=== PATIENT | male | born 1995 | race African-American/Black ===

== ENCOUNTER 2020-07-19 23:53 | Emergency (ER) | payer SELFPAY ==
[2020-07-20] MEDS ORDERED: Alum Hydrox/Mag Hydrox/Simeth 15 ML, Lidocaine 2% 5 ML PO ONE ×2 (00:49)
[2020-07-20] MEDS ORDERED: Famotidine 20 MG Tab PO ONE (00:49)
[2020-07-20] MEDS ORDERED: Ondansetron 4 MG Tab.DIS PO ONE (00:49)
[2020-07-20 01:39] LABS: BLOOD UREA NITROGEN,BUN 18 mg/dL (7.0-18.0); CARBON DIOXIDE,CO2 25.5 mmol/L (21.0-32.0); CHLORIDE,CL 105 mmol/L (98-107); GLUCOSE RANDOM 105 mg/dL (74-106); LIPASE 84 U/L (73-393); POTASSIUM,K 4.3 mmol/L (3.5-5.1); SODIUM,NA 140 mmol/L (136-148)
--- NOTE | 2020-07-20 01:45 | EDM.PDOC ---
ED HPI GENERAL MEDICAL PROBLEM - General Chief Complaint: Abdominal Pain Stated Complaint: VOMITING Time Seen by Provider: 07/20/20 00:00 - History of Present Illness INITIAL COMMENTS - FREE TEXT/NARRATIVE: CHIEF COMPLAINT(S): "I am feeling queasy." HISTORY OF PRESENT ILLNESS: This is a 25-year-old man without any reported past medical history who comes to the emergency department with a chief complaint of "I am feeling queasy." The patient states that for approximately one 1 month he has been feeling intermittent queasiness in his stomach. He states that he feels uneasy and woozy. He states that he does feel nauseous but denies any vomiting. He states that he notices h the queasiness sensation after he eats and states that he feels like he is going to throw up. He denies any pain at all whatsoever. He states that he does have some left-sided chest wall pain that started 2 days ago but denies any substernal chest pain, shortness of breath, fever, chills, syncope. He states that he has not yet tried anything for this. He denies any history of cholelithiasis, nephrolithiasis, dysuria, hematuria, penile discharge or testicular pain. He denies any illicit substance use. REVIEW OF SYSTEMS: Constitutional: Denies fever, chills. Eyes: Denies eye pain Ears, Nose, Mouth, & Throat: Denies earache Cardiovascular: Positive for left-sided chest wall pain. Denies chest pain Respiratory: Denies shortness of breath Gastrointestinal: Positive for stomach queasiness and nausea. Denies vomiting, diarrhea, hematochezia, hematemesis, bilious emesis Genitourinary: Denies hematuria, penile discharge, testicular pain or swelling Skin:Denies a rash MSK: Denies joint pain Neurological: Denies blurred vision, numbness, tingling, weakness Psychiatric: Denies depression PAST MEDICAL HISTORY: As per history of present illness and as reviewed below otherwise noncontributory. SURGICAL HISTORY: As per history of present illness and as reviewed below otherwise noncontributory. SOCIAL HISTORY: As per history of present illness and as reviewed below otherwise noncontributory. FAMILY HISTORY: As per history of present illness and as reviewed below otherwise noncontributory. EXAMINATION OF ORGAN SYSTEMS/BODY AREAS: Constitutional: Blood pressure was 140/68, heart rate 77, respiratory rate 18 with an oxygen saturation of 97% on room air. Temperature 36.8. General: Young man who smells strongly of marijuana. No acute distress Psychiatric: Flattened affect, odd mood Eyes: No scleral icterus or conjunctival erythema conjunctival injection. ENMT: Dry mucous membranes. No pharyngeal erythema. Cardiovascular: Regular, rate, and rhythm. No gallops, murmurs, or rubs. Bilateral upper extremity pulses symmetric and intact. No peripheral edema. No JVD. Respiratory: Lungs clear to auscultation bilaterally. No wheezes, rales, or rhonchi. Gastrointestinal: Soft, non-tender, non-distended. Normoactive bowel sounds no rebound no guarding. Negative Danielson's and McBurney's. Genitourinary: No suprapubic tenderness no CVA tenderness. Musculoskeletal: Normal range of motion. There is left-sided chest wall tenderness without any overlying skin changes or deformity. Skin: No lesions or abrasions. Neurological: Alert, GCS 15 strength and sensation grossly intact MEDICAL DECISION MAKING AND COURSE IN THE ED WITH INTERPRETATION/REVIEW OF DIAGNOSTIC STUDIES: This is a 25-year-old man without any reported past medical history who comes to the emergency department with what I did use as nausea and GI upset after eating without any pain who has stable vital signs but does smell strongly of marijuana. The patient adamantly refuses marijuana use. His symptoms could be secondary to marijuana use even though he is not admitting it however I did perform a bedside ultrasound to evaluate for gallbladder pathology given that the symptoms worsen with eating. Will obtain screening labs and provide the patient with Zofran, Pepcid, and Maalox as this could also be secondary to gastritis versus GERD. I do not believe any other labs or imaging are indicated. We will evaluate the patient. Bedside gallbladder ultrasound Gallbladder ultrasound was visualized and there was no gallbladder wall thickening, no sludge or evidence of cholelithiasis. CBD was not visualized however there was no sonographic Danielson sign. Laboratory: CBC reveals a decreased WBC count at 3.54 otherwise unremarkable. CMP is unremarkable. Lipase is normal. After period of observation the patient reported improvement. He was able to tolerate p.o. I did discuss with him that I would like him to use Pepcid and Maalox [id number]. He is to follow-up with primary care physician for further management. He is to return for any new or worsening symptoms. He was amenable to discharge and had no further questions DISPOSITION: The patient was discharged home in stable condition. The patient will follow up with primary care physician as needed CONDITION: Fair PROCEDURES: None FINAL IMPRESSION(S)/DIAGNOSES: 1. Acute GI upset, unknown etiology 2. Suspect marijuana use David Christensen M.D. - Related Data Allergies Allergy/AdvReac Type Severity Reaction Status Date / Time No Known Allergies Allergy Verified 07/20/20 00:15 Home Meds: Home Meds Ondansetron [Zofran ODT] 4 mg PO Q6H PRN #6 tab.dis 07/20/20 [Rx] Past Medical History - Past Health History Medical/Surgical History: Denies Medical/Surgical History Social & Family History - Tobacco Use Tobacco Use Status *Q: Never Tobacco User - Caffeine Use Caffeine Use: Reports: None - Recreational Drug Use Recreational Drug Use: No ED ROS GENERAL - Review of Systems Review Of Systems: See Below ED EXAM, GENERAL - Physical Exam Exam: See Below Course - Vital Signs Last Recorded V/S: Last Vital Signs Temp 36.7 C 07/20/20 01:58 Pulse 72 07/20/20 01:58 Resp 18 07/20/20 01:58 BP 136/82 07/20/20 01:58 Pulse Ox 98 07/20/20 01:58 - Orders/Labs/Meds Labs: Laboratory Tests 07/20/20 07/20/20 Range/Units 01:05 01:05 WBC 3.54 L (4.0-11.0) K/uL RBC 4.90 (4.50-5.90) M/uL Hgb 14.6 (13.0-17.0) g/dL Hct 42.8 (38.0-50.0) % MCV 87.3 (80.0-98.0) fL MCH 29.8 (27.0-32.0) pg MCHC 34.1 (31.0-37.0) g/dL RDW Std Deviation 40.9 (28.0-62.0) fl RDW Coeff of [place] 13 (11.0-15.0) % Plt Count 206 (150-400) K/uL MPV 10.70 (7.40-12.00) fL Neut % (Auto) 38.7 L (48.0-80.0) % Lymph % (Auto) 43.8 H (16.0-40.0) % [place] % (Auto) 9.9 (0.0-15.0) % Eos % (Auto) 6.8 (0.0-7.0) % Baso % (Auto) 0.8 (0.0-1.5) % Neut # (Auto) 1.4 (1.4-5.7) K/uL Lymph # (Auto) 1.6 (0.6-2.4) K/uL [place] # (Auto) 0.4 (0.0-0.8) K/uL Eos # (Auto) 0.2 (0.0-0.7) K/uL Baso # (Auto) 0.0 (0.0-0.1) K/uL Sodium 140 (136-148) mmol/L Potassium 4.3 (3.5-5.1) mmol/L Chloride 105 (98-107) mmol/L Carbon Dioxide 25.5 (21.0-32.0) mmol/L BUN 18 (7.0-18.0) mg/dL Creatinine 1.1 (0.8-1.3) mg/dL Est Cr Clr Drug Dosing 101.05 mL/min Estimated GFR (MDRD) > 60.0 ml/min Glucose 105 (74-106) mg/dL Calcium 8.5 (8.5-10.1) mg/dL Total Bilirubin 0.3 (0.2-1.0) mg/dL AST 21 (15-37) IU/L ALT 56 (14-63) IU/L Alkaline Phosphatase 84 (46-116) U/L Total Protein 7.4 (6.4-8.2) g/dL Albumin 3.6 (3.4-5.0) g/dL Globulin 3.8 (2.6-4.0) g/dL Albumin/Globulin Ratio 0.9 (0.9-1.6) Lipase 84 (73-393) U/L Meds: Medications Discontinued Medications Generic Name Dose Route Start Last Admin Trade Name Freq PRN Reason Stop Dose Admin Al Hydroxide/Mg Hydroxide 15 0 ml 07/20/20 00:49 07/20/20 01:07 ml/ Lidocaine HCl 5 ml PO 02/28/21 00:50 1 each ONETIME ONE Administration Famotidine 20 mg 07/20/20 00:49 07/20/20 01:07 Pepcid PO 07/20/20 00:50 20 mg ONETIME ONE Administration Ondansetron HCl 4 mg 07/20/20 00:49 07/20/20 01:06 Zofran Odt PO 07/20/20 00:50 4 mg ONETIME ONE Administration Departure - Departure Time of Disposition: 01:54 Disposition: Home, Self-Care 01 Condition: Good Clinical Impression: GERD (gastroesophageal reflux disease) Qualifiers: Esophagitis presence: esophagitis presence not specified Qualified Code(s): K21.9 - Gastro-esophageal reflux disease without esophagitis - Discharge Information Prescriptions: Ondansetron [Zofran ODT] 4 mg PO Q6H PRN #6 tab.dis PRN Reason: Nausea Instructions: Food Choices for Gastroesophageal Reflux Disease, Adult, [id number] Referrals: PCP,None [Primary Care Provider] - Forms: ED Department Discharge Additional Instructions: Your evaluated today on an emergent basis. At this time your work-up was negative. Does uncertain as to what is causing the queasiness in your stomach however reflux disease is a consideration. I do recommend that you use famotidine 20 mg twice a day and use Maalox as needed for exacerbations. I did send a prescription for Zofran which is an antinausea medication which can be used as needed for nausea. If you have any new or worsening symptoms please return to the emergency department. Otherwise please follow-up with your primary care physician within 1 week. [facility] - Primary Care [address] [place] [address] [id number] [address] The patient is informed of any results of their evaluation and diagnostic workup and all questions are answered. They are given discharge instructions and return precautions. The patient is stable for discharge. The patient states they understand and agree with the plan and that they will return if their symptoms get worse or if they have any new concerns. The following information is given to patients seen in the emergency department who are being discharged to home. This information is to outline your options for follow-up care. We provide all patients seen in our emergency department with a follow-up referral. The need for follow-up, as well as the timing and circumstances, are variable depending upon the specifics of your emergency department visit. If you don't have a primary care physician on staff, we will provide you with a referral. We always advise you to contact your personal physician following an emergency department visit to inform them of the circumstance of the visit and for follow-up with them and/or the need for any referrals to a consulting specialist. The emergency department will also refer you to a specialist when appropriate. This referral assures that you have the opportunity for follow-up care with a specialist. All of these measure are taken in an effort to provide you with optimal care, which includes your follow-up. Under all circumstances we always encourage you to contact your private physician who remains a resource for coordinating your care. When calling for follow-up care, please make the office aware that this follow-up is from your recent emergency room visit. If for any reason you are refused follow-up, please contact the [facility] Emergency Department at and asked to speak to the emergency department charge nurse. Sepsis Event Note (ED) - Evaluation Sepsis Screening Result: No Definite Risk
== END 2020-07-20 01:58 | disposition home or self-care (01) ==
LOC: MW.ED 23:53
DX: K21.9 Gastro-esophageal reflux disease without esophagitis (principal); K30 Functional dyspepsia
CPT/HCPCS: 36415; 80053; 83690; 85025; 99284; A9270; 99283

== ENCOUNTER 2021-03-06 04:27 | Emergency (ER) | payer OTHER ==
[2021-03-06] MEDS ORDERED: Ondansetron 4 MG Tab.DIS PO ONE (05:00)
[2021-03-06] MEDS ORDERED: Ibuprofen 600 MG Tab PO ONE (05:00)
[2021-03-06] MEDS ORDERED: Azithromycin 250 MG Tab PO ONE (06:59)
--- NOTE | 2021-03-06 07:00 | EDM.PDOC ---
ED HPI GENERAL MEDICAL PROBLEM - General Chief Complaint: General Stated Complaint: covid like symptoms Time Seen by Provider: 03/06/21 04:57 - History of Present Illness INITIAL COMMENTS - FREE TEXT/NARRATIVE: HISTORY AND PHYSICAL: History of present illness: Is a 25-year-old gentleman who presents ER today secondary to nasal congestion, cough, fevers at home. Patient reports that sore throat and ear pain. Patient reports he has not had his Covid vaccination already had Covid in the past. Patient has any recent nausea, vomiting, diarrhea, dysuria, frequency, urgency. Patient is a chest pain or shortness of breath. Review of systems: As per history of present illness and below otherwise all systems reviewed and negative. Past medical history: As per history of present illness and as reviewed below otherwise noncon tributory. Surgical history: As per history of present illness and as reviewed below otherwise noncontributory. Social history: No reported history of drug abuse. Family history: As per history of present illness and as reviewed below otherwise noncontributory. Physical exam: This patient was seen and evaluated during the 2019 SARS-CoV-2 novel coronavirus pandemic period. Community viral transmission is ongoing at time of this encounter and the emergency department is operating under pandemic response procedures. Constitutional: Patient is oriented to person, place, and time. Appears well- developed and well-nourished. No distress. HEENT: Moist mucous membranes Head: Normocephalic and atraumatic Eyes: Right eye exhibits no discharge. Left eye exhibits no discharge. No scleral icterus Neck: Normal range of motion. No tracheal deviation present. Cardiovascular: Normal rate and regular rhythm. Pulmonary: Effort normal, no respiratory distress. Abdominal: No distention Musculoskeletal: Normal range of motion Neurologic: Alert and oriented to person, place and time. Skin: [place], warm and dry. Psychiatric: Normal mood and affect. Behavior is normal. Judgment and thought content normal. Nursing note and vital signs have been reviewed Diagnostics: Covid negative Therapeutics: Motrin/Tylenol Assessment and plan: 25-year-old gentleman who presents ER today with signs and symptoms consistent with sinusitis. Patient's Covid test is negative. Patient was given a course of Zithromax and instructed to follow-up with a primary care doctor within 1 week for reevaluation. Reassessment at the time of disposition demonstrates that the patient is in no acute distress. The patient has remained stable throughout the entire ED visit and is without objective evidence for acute process requiring urgent intervention or hospitalization. The patient is stable for discharge, counseling is provided as documented above, discussed symptomatic treatment and specific conditions for return. I have spoken with the patient/caregiver and discussed todays findings, in addition to providing specific details for the plan of care. Questions are answered and there is agreement with the plan. Definitive disposition and diagnosis as appropriate pending reevaluation and review of above. Anterior Head Pain Score (Numeric/FACES): 10 - Related Data Allergies Allergy/AdvReac Type Severity Reaction Status Date / Time No Known Allergies Allergy Verified 03/06/21 04:40 Home Meds: Home Meds Ondansetron [Zofran ODT] 4 mg PO Q6H PRN #6 tab.dis 07/20/20 [Rx] Azithromycin [Zithromax] 250 mg PO DAILY #4 tablet 03/06/21 [Rx] Past Medical History - Past Health History Medical/Surgical History: Denies Medical/Surgical History - Infectious Disease History Infectious Disease History: Reports: None Social & Family History - Family History Family Medical History: No Pertinent Family History - Caffeine Use Caffeine Use: Reports: None - Recreational Drug Use Recreational Drug Use: No ED ROS GENERAL - Review of Systems Review Of Systems: See Below ED EXAM, GENERAL - Physical Exam Exam: See Below Course - Vital Signs Last Recorded V/S: Last Vital Signs Temp 98.6 F 03/06/21 05:09 Pulse 80 03/06/21 04:41 Resp 19 03/06/21 04:41 BP 138/77 03/06/21 04:41 Pulse Ox 96 03/06/21 04:41 - Orders/Labs/Meds Labs: Laboratory Tests 03/06/21 Range/Units 05:35 SARS-CoV-2 RNA (TASHA) NEGATIVE (NEGATIVE) Meds: Medications Discontinued Medications Generic Name Dose Route Start Last Admin Trade Name Freq PRN Reason Stop Dose Admin Ibuprofen 600 mg 03/06/21 05:00 03/06/21 05:09 Ibuprofen 600 Mg Tab PO 03/06/21 05:01 600 mg ONETIME ONE Administration Ondansetron HCl 4 mg 03/06/21 05:00 03/06/21 05:09 Ondansetron 4 Mg Tab.Dis PO 03/06/21 05:01 4 mg ONETIME ONE Administration Departure - Departure Time of Disposition: 06:57 Disposition: Home, Self-Care 01 Condition: Good Clinical Impression: Sinusitis - Discharge Information Instructions: Sinusitis, Adult, [id number] Referrals: PCP,None [Primary Care Provider] - Additional Instructions: Your seen and evaluated in the ER today secondary to signs and symptoms that appear to be consistent with a sinus infection. You were started on an antibiotic called Zithromax. You can take acetaminophen and ibuprofen to assist with your symptoms. Please get plenty of rest and drink plenty of fluids over next several days. The following information is given to patients seen in the emergency department who are being discharged to home. This information is to outline your options for follow-up care. We provide all patients seen in our emergency department with a follow-up referral. The need for follow-up, as well as the timing and circumstances, are variable depending upon the specifics of your emergency department visit. If you don't have a primary care physician on staff, we will provide you with a referral. We always advise you to contact your personal physician following an emergency department visit to inform them of the circumstance of the visit and for follow-up with them and/or the need for any referrals to a consulting specialist. The emergency department will also refer you to a specialist when appropriate. This referral assures that you have the opportunity for follow-up care with a specialist. All of these measure are taken in an effort to provide you with optimal care, which includes your follow-up. Under all circumstances we always encourage you to contact your private physician who remains a resource for coordinating your care. When calling for follow-up care, please make the office aware that this follow-up is from your recent emergency room visit. If for any reason you are refused follow-up, please contact the [facility] Emergency Department at and asked to speak to the emergency department charge nurse. [facility] - Primary Care [address] [place] [id number] [address] Sepsis Event Note (ED) - Focused Exam Vital Signs: Vital Signs Temp Temp Pulse Resp BP Pulse Ox 03/06/21 05:09 98.6 F 03/06/21 04:41 98.6 F 80 19 138/77 96
== END 2021-03-06 07:12 | disposition home or self-care (01) ==
LOC: MW.ED 04:27
DX: J32.9 Chronic sinusitis, unspecified (principal); Z20.822 Contact with and (suspected) exposure to COVID-19
CPT/HCPCS: 87635; 99283; A9270; U0002

== ENCOUNTER 2021-07-22 08:31 | Emergency (ER) | payer OTHER ==
[2021-07-22] MEDS ORDERED: Ketorolac 30 MG/ML SDV IM ONE (09:12)
== END 2021-07-22 10:48 | disposition home or self-care (01) ==
LOC: MW.ED 08:31
DX: B34.9 Viral infection, unspecified (principal); M54.9 Dorsalgia, unspecified; Z20.822 Contact with and (suspected) exposure to COVID-19
CPT/HCPCS: 71045; 87635; 96372; 99283; J1885; U0002

== ENCOUNTER 2021-07-24 06:26 | Emergency (ER) | payer SELFPAY ==
[2021-07-24] MEDS ORDERED: fentaNYL 50 MCG/ML SDV IVPUSH ONE (06:38)
[2021-07-24] MEDS ORDERED: Ondansetron 4 MG/2 ML SDV IVPUSH ONE (06:38)
[2021-07-24] MEDS ORDERED: Pantoprazole 80 MG in Sodium Chloride 0.9% 10 ML IVPUSH ONE (06:50)
[2021-07-24 07:20] LABS: BLOOD UREA NITROGEN,BUN 12 mg/dL (7.0-18.0); CARBON DIOXIDE,CO2 26.1 mmol/L (21.0-32.0); CHLORIDE,CL 102 mmol/L (98-107); GLUCOSE RANDOM 95 mg/dL (74-106); POTASSIUM,K 3.7 mmol/L (3.5-5.1); SODIUM,NA 140 mmol/L (136-148)
[2021-07-24] MEDS ORDERED: Azithromycin 250 MG Tab PO ONE (08:00)
== END 2021-07-24 08:10 | disposition home or self-care (01) ==
LOC: MW.ED 06:26
DX: R04.2 Hemoptysis (principal); R07.89 Other chest pain; R05.1 Acute cough; R10.9 Unspecified abdominal pain; M54.9 Dorsalgia, unspecified; R09.81 Nasal congestion
CPT/HCPCS: 36415; 71045; 80053; 83690; 85025; 85379; 85610; 85730; 93005; 96374; 96375; 99284; A9270; C9113; J2405; J3010

== ENCOUNTER 2021-08-11 19:35 | Emergency (ER) | payer BC ==
[2021-08-11] MEDS ORDERED: Ondansetron 4 MG Tab.DIS PO ONE (20:05)
[2021-08-11] MEDS ORDERED: Haloperidol Lactate 5 MG/ML SDV IM ONE (20:07)
[2021-08-11] MEDS ORDERED: diphenhydrAMINE 50 MG/ML SDV IM STA (20:08)
== END 2021-08-11 22:05 | disposition home or self-care (01) ==
LOC: MW.ED 19:35
DX: G89.29 Other chronic pain (principal); M54.6 Pain in thoracic spine; R11.10 Vomiting, unspecified; Z87.891 Personal history of nicotine dependence
CPT/HCPCS: 71045; 96372; 99284; J1200; J1630

== ENCOUNTER 2021-08-12 05:17 | Emergency (ER) | payer BC ==
[2021-08-12] MEDS ORDERED: diphenhydrAMINE 25 MG Cap PO ONE (05:19)
== END 2021-08-12 05:40 | disposition home or self-care (01) ==
LOC: MW.ED 05:17
DX: G25.71 Drug induced akathisia (principal); T50.905A Adverse effect of unspecified drugs, medicaments and biological substances, initial encounter
CPT/HCPCS: 99283; A9270

== ENCOUNTER 2021-08-20 12:18 | Emergency (ER) | payer BC ==
[2021-08-20] MEDS ORDERED: Sodium Chloride 0.9% 1,000 ML IV ONE (13:14)
[2021-08-20] MEDS ORDERED: Famotidine 20 MG/2 ML SDV IVPUSH ONE (13:14)
[2021-08-20 14:39] LABS: BLOOD UREA NITROGEN,BUN 17 mg/dL (7.0-18.0); CARBON DIOXIDE,CO2 26.9 mmol/L (21.0-32.0); CHLORIDE,CL 101 mmol/L (98-107); GLUCOSE RANDOM 80 mg/dL (74-106); LIPASE 44 U/L (73-393); POTASSIUM,K 4.8 mmol/L (3.5-5.1); SODIUM,NA 137 mmol/L (136-148)
[2021-08-20] MEDS ORDERED: Iopamidol 755 MG/ML 500 ML Multipack Bottle IVPUSH STA (14:56)
== END 2021-08-20 16:09 | disposition home or self-care (01) ==
LOC: MW.ED 12:18
DX: K21.9 Gastro-esophageal reflux disease without esophagitis (principal)
CPT/HCPCS: 36415; 74177; 80053; 80305; 81001; 83690; 85025; 96374; 99284; J3490; J7030; Q9967; 99282

== ENCOUNTER 2021-09-20 12:50 | Emergency (ER) | payer OTHER, BC ==
[2021-09-20] MEDS ORDERED: Ondansetron 4 MG Tab.DIS PO ONE (13:32)
[2021-09-20 14:21] LABS: BLOOD UREA NITROGEN,BUN 18 mg/dL (7.0-18.0); CARBON DIOXIDE,CO2 24.1 mmol/L (21.0-32.0); CHLORIDE,CL 97 mmol/L (98-107); GLUCOSE RANDOM 93 mg/dL (74-106); LIPASE 86 U/L (73-393); POTASSIUM,K 3.9 mmol/L (3.5-5.1); SODIUM,NA 137 mmol/L (136-148)
== END 2021-09-20 15:48 | disposition home or self-care (01) ==
LOC: MW.ED 12:50
DX: R10.13 Epigastric pain (principal); R11.0 Nausea; K21.9 Gastro-esophageal reflux disease without esophagitis; Z79.899 Other long term (current) drug therapy; Z72.0 Tobacco use
CPT/HCPCS: 36415; 80053; 82375; 82803; 83690; 85025; 93005; 99285; A9270

== ENCOUNTER 2022-01-01 09:16 | Emergency (ER) | payer BC ==
[2022-01-01] MEDS ORDERED: Ibuprofen 600 MG Tab PO ONE (10:23)
== END 2022-01-01 20:10 | disposition home or self-care (01) ==
LOC: MW.ED 09:16
DX: M54.6 Pain in thoracic spine (principal); Z79.899 Other long term (current) drug therapy; X50.0XXA Overexertion from strenuous movement or load, initial encounter
CPT/HCPCS: 99283; A9270

== ENCOUNTER 2022-01-04 08:41 | Emergency (ER) | payer BC | END 2022-01-04 13:31 | disposition home or self-care (01) | LOC: MW.ED 08:41 | DX: S29.9XXA Unspecified injury of thorax, initial encounter (principal); Z86.16 Personal history of COVID-19; X50.0XXA Overexertion from strenuous movement or load, initial encounter; Y99.0 Civilian activity done for income or pay | CPT/HCPCS: 99283 ==

== ENCOUNTER 2022-04-22 09:49 | Emergency (ER) | payer SELFPAY ==
[2022-04-22 11:18] LABS: ACETAMINOPHEN <2.0 ug/mL; BLOOD UREA NITROGEN,BUN 13 mg/dL (7.0-18.0); CARBON DIOXIDE,CO2 23.9 mmol/L (21.0-32.0); CHLORIDE,CL 103 mmol/L (98-107); GLUCOSE RANDOM 95 mg/dL (74-106); POTASSIUM,K 3.6 mmol/L (3.5-5.1); SODIUM,NA 138 mmol/L (136-148)
[2022-04-22 11:27] LABS: ESTIMATED GFR 122 mL/min (>60)
[2022-04-22 11:42] LABS: CORONAVIRUS COVID-19 NAA NEGATIVE (NEGATIVE); INFLUENZA A NAA NEGATIVE (NEGATIVE); INFLUENZA B NAA NEGATIVE (NEGATIVE); RESPIRATORY SYNCYTIAL VIR NAA NEGATIVE (NEGATIVE)
== END 2022-04-22 16:18 ==
LOC: MW.ED 09:49
DX: T71.162A Asphyxiation due to hanging, intentional self-harm, initial encounter (principal); F32.9 Major depressive disorder, single episode, unspecified; Z72.0 Tobacco use; Z20.822 Contact with and (suspected) exposure to COVID-19
CPT/HCPCS: 0241U; 36415; 80053; 80143; 80179; 80305; 80307; 81001; 83735; 84443; 85025; 93005; 99285